=== PATIENT | female | born 1945 | race African-American/Black ===

== ENCOUNTER 2019-10-06 15:30 | Inpatient (IN) | payer MEDICARE ==
[~2019-10-06] VITALS: Ht 172.7 cm; Wt 94.3 kg
[~2019-10-06 15:30] MED LIST: DICL100T83 PO
[2019-10-06] MEDS ORDERED: KETOROLAC 30MG/ML VIAL IV STA (22:01)
[2019-10-06] MEDS ORDERED: ONDANSETRON HCL 4MG/2ML INJ IV STA (22:01)
[2019-10-06] MEDS ORDERED: SODIUM CHLORIDE 0.9% 1,000 ML IV ONE (22:01)
[2019-10-06 22:37] LABS: CLARITY URINE CLEAR (CLEAR); COLOR URINE YELLOW (YELLOW); KETONES URINE 1+ (NEGATIVE); LEUKOCYTE ESTERASE URINE NEGATIVE (NEGATIVE); NITRITE URINE NEGATIVE (NEGATIVE); OCCULT BLOOD URINE NEGATIVE (NEGATIVE); PH URINE 5.5 (4.5-8.0); PROTEIN URINE NEGATIVE (NEGATIVE)
[2019-10-06 22:49] LABS: BASOPHILS % 0.8 % (0.0-2.0); EOSINOPHILS % 0.7 % (0.0-5.0); HEMATOCRIT. 43.7 % (36.0-48.0); HEMOGLOBIN. 14.5 g/dL (12.0-16.0); LYMPHOCYTES % 16.1 % (20.0-50.0); MEAN CORPUSCULAR HEMOGLOBIN 28.8 pg (28.0-32.0); MEAN CORPUSCULAR VOLUME 86.7 fL (81.0-99.0); MEAN PLATELET VOLUME 8.7 fl (7.4-10.4); MONOCYTES % 6.7 % (2.0-8.0); NEUTROPHILS % 75.7 % (40.0-76.0); PLATELET 293 x1000/uL (130-400); RED BLOOD CELL COUNT 5.04 mill/uL (4.2-5.4); RED CELL DISTRIBUTION WIDTH 15.2 % (11.6-14.6)
[2019-10-06 22:53] LABS: CHLORIDE 105 mEq/L (98-107)
[2019-10-06 22:56] LABS: PARTIAL THROMBOPLASTIN TIME 34.2 sec (23.4-31.0); PROTHROMBIN TIME 10.7 sec (9.6-11.0)
[2019-10-06 22:57] LABS: ETHANOL BLOOD < 10 mg/dL
[2019-10-06 23:32] LABS: *AMPHETAMINES SCREEN URINE NEGATIVE (NEGATIVE); *BARBITURATES SCREEN URINE NEGATIVE (NEGATIVE); *BENZODIAZEPINES SCREEN URINE NEGATIVE (NEGATIVE); *COCAINE SCREEN URINE NEGATIVE (NEGATIVE); CANNABINOID URINE SCREEN NEGATIVE (NEGATIVE); METHADONE URINE SCREEN NEGATIVE (NEGATIVE); OPIATES URINE SCREEN NEGATIVE (NEGATIVE); PHENCYCLIDINE URINE SCREEN NEGATIVE (NEGATIVE)
[2019-10-06] MEDS ORDERED: PIPERACILLIN/TAZ 3.375G PREMIX 50 ML IV ONE (23:45)
[2019-10-07] MEDS ORDERED: GUAIFENESIN 200MG/10ML SUGAR FREE UDC PO PRN
[2019-10-07] MEDS ORDERED: NA PHOS,M-B/NA PHOS,DI-BA ENEMA 118ML PR PRN
[2019-10-07] MEDS ORDERED: DOCUSATE SODIUM 100MG CAPSULE PO PRN
[2019-10-07] MEDS ORDERED: CLONIDINE 0.1MG TABLET PO PRN
[2019-10-07] MEDS ORDERED: LORAZEPAM 2MG/ML CPJ IV PRN
[2019-10-07] MEDS ORDERED: IPRATROPIUM/ALBUTEROL 0.5-3(2.5)MG/3ML NEB HHN PRN
[2019-10-07] MEDS ORDERED: DEXT 5%/0.45% NACL 1000ML 1,000 ML IV SCH (02:05)
[2019-10-07 02:09] VITALS: BP 112/74
[2019-10-07 04:00] VITALS: BP 139/77
[2019-10-07] MEDS ORDERED: LISI10TA5 PO (04:39)
[2019-10-07] MEDS ORDERED: BUPIVACAINE HCL 0.5% (5MG/ML) 50ML ONE (07:13)
[2019-10-07] MEDS ORDERED: SKIN ADHESIVE 0.7 GM EA TOP ONE (07:13)
[2019-10-07 07:14] LABS: BASOPHILS % 0.7 % (0.0-2.0); EOSINOPHILS % 1.2 % (0.0-5.0); HEMATOCRIT. 37.3 % (36.0-48.0); HEMOGLOBIN. 12.3 g/dL (12.0-16.0); LYMPHOCYTES % 20.6 % (20.0-50.0); MEAN CORPUSCULAR HEMOGLOBIN 28.5 pg (28.0-32.0); MEAN CORPUSCULAR VOLUME 86.5 fL (81.0-99.0); MEAN PLATELET VOLUME 8.7 fl (7.4-10.4); MONOCYTES % 6.9 % (2.0-8.0); NEUTROPHILS % 70.6 % (40.0-76.0); PLATELET 238 x1000/uL (130-400); RED BLOOD CELL COUNT 4.31 mill/uL (4.2-5.4); RED CELL DISTRIBUTION WIDTH 15.4 % (11.6-14.6)
[2019-10-07] MEDS ORDERED: FENTANYL CITRATE/PF 50MCG/ML 2ML VIAL ONE ×3 (07:38→08:05)
[2019-10-07] MEDS ORDERED: ROCURONIUM BROMIDE 10MG/ML VIAL 5ML IV ONE (07:38)
[2019-10-07] MEDS ORDERED: MIDAZOLAM HCL 2 MG/2 ML VIAL ONE (07:38)
[2019-10-07] MEDS ORDERED: NEOSTIGMINE METHYLSULFATE 1MG/ML 10 ML VIAL ONE (07:38)
[2019-10-07] MEDS ORDERED: PROPOFOL 200MG/20ML VIAL IV ONE (07:38)
[2019-10-07] MEDS ORDERED: CEFAZOLIN SODIUM 1000MG/VIAL ONE (07:39)
[2019-10-07] MEDS ORDERED: EPHEDRINE SULFATE 50MG/ML VIAL ONE (07:39)
[2019-10-07] MEDS ORDERED: METOCLOPRAMIDE HCL 10MG/2ML VIAL ONE (07:39)
[2019-10-07] MEDS ORDERED: GLYCOPYRROLATE 0.2 MG/ML 2ML VIAL ONE (07:39)
[2019-10-07] MEDS ORDERED: LIDOCAINE HCL/PF 1% 10 MG/ML 5ML VIAL ONE (07:39)
[2019-10-07] MEDS ORDERED: PHENYLEPHRINE HCL 10 MG/ML 1ML (IV VIAL) IV ONE (07:39)
[2019-10-07] MEDS ORDERED: SODIUM CHLORIDE 0.9% 10ML VIAL ONE (07:39)
[2019-10-07] MEDS ORDERED: SUCCINYLCHOLINE CHLORIDE 200MG/10ML IV ONE (07:39)
[2019-10-07 07:42] LABS: CHLORIDE 110 mEq/L (98-107)
[2019-10-07] MEDS ORDERED: ONDANSETRON HCL 4MG/2ML INJ IV PRN ×2 (07:45→09:00)
[2019-10-07] MEDS ORDERED: HYDROCODONE/ACETAMINOPHEN 5/325MG TABLET PO PRN (07:45)
[2019-10-07] MEDS ORDERED: PIPERACILLIN/TAZOBACTAM 3.375 G in DEXT 5% WATER 100 ML IV SCH (08:00)
[2019-10-07] MEDS ORDERED: SODIUM CHLORIDE 0.9% 1,000 ML IV ONE (08:48)
[2019-10-07] MEDS: DEXT 5%/0.45% NACL KCL 20MEQ/L 1,000 ML IV SCH ×2 (09:00→13:28)
[2019-10-07] MEDS: ENOXAPARIN 40MG/0.4ML SYR SUBCUT SCH (09:00)
[2019-10-07] MEDS ORDERED: HYDROMORPHONE HCL/PF 2MG/ML CPJ IV PRN (09:00)
[2019-10-07] MEDS ORDERED: MEPERIDINE HCL/PF 25MG/ML CPJ IV PRN ×2 (09:00)
[2019-10-07] MEDS ORDERED: MORPHINE SULFATE 2 MG/ML CPJ (NOT FOR IM USE) IV PRN ×2 (09:00)
[2019-10-07] MEDS: SODIUM CHLORIDE 0.9% INJ 3ML FLUSH IVF SCH ×5 (11:00→21:43)
[2019-10-07 12:00] VITALS: BP 126/71
[2019-10-07] MEDS: MORPHINE SULFATE 2 MG/ML CPJ (NOT FOR IM USE) IV PRN (12:13)
[2019-10-07 16:00] VITALS: BP 148/81
[2019-10-07] MEDS: MORPHINE SULFATE 4 MG/ML CPJ (NOT FOR IM USE) IV PRN ×2 (17:14→20:45)
[2019-10-07] MEDS: PIPERACILLIN/TAZOBACTAM 3.375 G in DEXT 5% WATER 100 ML IV SCH (19:37)
[2019-10-07 20:00] VITALS: BP 130/81
[2019-10-08] VITALS: BP 127/71
[2019-10-08] MEDS: ONDANSETRON HCL 4MG/2ML INJ IV PRN ×2 (01:09→20:23)
[2019-10-08 04:00] VITALS: BP 127/71
[2019-10-08] MEDS: PIPERACILLIN/TAZOBACTAM 3.375 G in DEXT 5% WATER 100 ML IV SCH ×3 (04:39→18:47)
[2019-10-08] MEDS: DEXT 5%/0.45% NACL KCL 20MEQ/L 1,000 ML IV SCH ×2 (04:39→14:54)
[2019-10-08] MEDS: SODIUM CHLORIDE 0.9% INJ 3ML FLUSH IVF SCH ×6 (05:27→22:00)
[2019-10-08] MEDS: ACETAMINOPHEN 325MG TABLET PO PRN ×2 (05:38→23:56)
[2019-10-08 08:00] VITALS: BP 142/83
[2019-10-08] MEDS: ENOXAPARIN 40MG/0.4ML SYR SUBCUT SCH (09:00)
[2019-10-08] MEDS: MORPHINE SULFATE 2 MG/ML CPJ (NOT FOR IM USE) IV PRN ×2 (09:35→20:14)
[2019-10-08 14:00] VITALS: BP 135/85
[2019-10-08 16:00] VITALS: BP 132/64
[2019-10-08 20:00] VITALS: BP 149/86
[2019-10-08] MEDS: MAGNESIUM/ALUMINUM HYDROXIDE/SIMETHICONE 30ML UDC PO PRN (20:13)
[2019-10-09] VITALS: BP 140/87
[2019-10-09] MEDS: DEXT 5%/0.45% NACL KCL 20MEQ/L 1,000 ML IV SCH ×2 (01:35→19:01)
[2019-10-09] MEDS: PIPERACILLIN/TAZOBACTAM 3.375 G in DEXT 5% WATER 100 ML IV SCH ×3 (01:35→19:01)
[2019-10-09] MEDS: ONDANSETRON HCL 4MG/2ML INJ IV PRN (03:11)
[2019-10-09 04:00] VITALS: BP 181/110
[2019-10-09] MEDS: SODIUM CHLORIDE 0.9% INJ 3ML FLUSH IVF SCH ×5 (05:32→22:13)
[2019-10-09 08:00] VITALS: BP 144/90
[2019-10-09] MEDS: ENOXAPARIN 40MG/0.4ML SYR SUBCUT SCH (10:38)
[2019-10-09 11:13] LABS: BASOPHILS % 0.4 % (0.0-2.0); LYMPHOCYTES % 8.4 % (20.0-50.0); MEAN CORPUSCULAR VOLUME 86.2 fL (81.0-99.0); MEAN PLATELET VOLUME 8.5 fl (7.4-10.4); MONOCYTES % 7.5 % (2.0-8.0); NEUTROPHILS % 83.7 % (40.0-76.0); PLATELET 340 x1000/uL (130-400)
[2019-10-09 11:27] LABS: HEMATOCRIT. 42.2 % (36.0-48.0); HEMOGLOBIN. 14.2 g/dL (12.0-16.0)
[2019-10-09 11:41] LABS: CHLORIDE 99 mEq/L (98-107)
[2019-10-09 12:00] VITALS: BP 179/73
[2019-10-09 16:00] VITALS: BP 145/99
[2019-10-09 20:00] VITALS: BP 114/75
[2019-10-09] MEDS: MORPHINE SULFATE 2 MG/ML CPJ (NOT FOR IM USE) IV PRN (20:31)
[2019-10-10] VITALS: BP 113/67
[2019-10-10] MEDS: PIPERACILLIN/TAZOBACTAM 3.375 G in DEXT 5% WATER 100 ML IV SCH ×3 (02:23→16:58)
[2019-10-10 04:00] VITALS: BP 102/66
[2019-10-10] MEDS: SODIUM CHLORIDE 0.9% INJ 3ML FLUSH IVF SCH ×3 (05:16→21:21)
[2019-10-10] MEDS: DEXT 5%/0.45% NACL KCL 20MEQ/L 1,000 ML IV SCH ×2 (06:35→17:16)
[2019-10-10 08:00] VITALS: BP 118/80
[2019-10-10] MEDS: ENOXAPARIN 40MG/0.4ML SYR SUBCUT SCH (08:07)
[2019-10-10] MEDS: MORPHINE SULFATE 4 MG/ML CPJ (NOT FOR IM USE) IV PRN (10:56)
[2019-10-10] MEDS: ONDANSETRON HCL 4MG/2ML INJ IV PRN (10:57)
[2019-10-10 12:00] VITALS: BP 117/71
[2019-10-10] MEDS: DIPHENHYDRAMINE 50MG/ML VIAL IV PRN (15:45)
[2019-10-10 16:00] VITALS: BP 139/72
[2019-10-10 20:00] VITALS: BP 111/79
[2019-10-10] MEDS: MAGNESIUM/ALUMINUM HYDROXIDE/SIMETHICONE 30ML UDC PO PRN (22:53)
[2019-10-11] VITALS: BP 164/99
[2019-10-11] MEDS: PIPERACILLIN/TAZOBACTAM 3.375 G in DEXT 5% WATER 100 ML IV SCH ×3 (02:21→18:27)
[2019-10-11 04:00] VITALS: BP 155/99
[2019-10-11] MEDS: SODIUM CHLORIDE 0.9% INJ 3ML FLUSH IVF SCH ×3 (06:23→22:00)
[2019-10-11 07:35] LABS: BASOPHILS % 0.9 % (0.0-2.0); EOSINOPHILS % 1.8 % (0.0-5.0); HEMATOCRIT. 36.9 % (36.0-48.0); HEMOGLOBIN. 12.1 g/dL (12.0-16.0); LYMPHOCYTES % 16.4 % (20.0-50.0); MEAN CORPUSCULAR HEMOGLOBIN 28.3 pg (28.0-32.0); MEAN CORPUSCULAR VOLUME 86.3 fL (81.0-99.0); MONOCYTES % 7.7 % (2.0-8.0); NEUTROPHILS % 73.2 % (40.0-76.0); PLATELET 379 x1000/uL (130-400); RED BLOOD CELL COUNT 4.27 mill/uL (4.2-5.4); RED CELL DISTRIBUTION WIDTH 14.8 % (11.6-14.6)
[2019-10-11 08:00] LABS: PHOSPHORUS 2.6 mg/dL (2.5-4.9)
[2019-10-11] MEDS: DIPHENHYDRAMINE 50MG/ML VIAL IV PRN (09:52)
[2019-10-11] MEDS: ENOXAPARIN 40MG/0.4ML SYR SUBCUT SCH (09:52)
[2019-10-11 12:00] VITALS: BP 106/85
[2019-10-11] MEDS: DEXT 5%/0.45% NACL KCL 20MEQ/L 1,000 ML IV SCH ×2 (13:00→23:07)
[2019-10-11] MEDS: PANTOPRAZOLE SODIUM 40 MG/VIAL IV SCH (14:33)
[2019-10-11] MEDS ORDERED: POTASSIUM CHLORIDE 20MEQ TABLET SR PO NR (18:30)
[2019-10-11 20:00] VITALS: BP 110/77
[2019-10-12] VITALS: BP 117/78
[2019-10-12] MEDS: PIPERACILLIN/TAZOBACTAM 3.375 G in DEXT 5% WATER 100 ML IV SCH ×3 (02:05→18:30)
[2019-10-12 04:00] VITALS: BP 142/74
[2019-10-12] MEDS: SODIUM CHLORIDE 0.9% INJ 3ML FLUSH IVF SCH ×3 (06:46→22:00)
[2019-10-12 08:00] VITALS: BP 120/74
[2019-10-12] MEDS: PANTOPRAZOLE SODIUM 40 MG/VIAL IV SCH (09:02)
[2019-10-12] MEDS: DEXT 5%/0.45% NACL KCL 20MEQ/L 1,000 ML IV SCH ×2 (09:02→19:00)
[2019-10-12] MEDS: ENOXAPARIN 40MG/0.4ML SYR SUBCUT SCH (09:02)
[2019-10-12] MEDS: ACETAMINOPHEN 325MG TABLET PO PRN ×2 (09:05→16:39)
[2019-10-12 12:00] VITALS: BP 108/75
[2019-10-12 16:00] VITALS: BP 116/69
[2019-10-12 20:00] VITALS: BP 118/69
[2019-10-12] MEDS: LEVOFLOXACIN 500MG TABLET PO SCH (20:37)
[2019-10-12] MEDS ORDERED: TEMAZEPAM 15MG CAPSULE PO PRN (21:00)
[2019-10-12] MEDS: METRONIDAZOLE 500MG TABLET PO SCH (22:15)
[2019-10-13] VITALS: BP 104/60
[2019-10-13] MEDS: PIPERACILLIN/TAZOBACTAM 3.375 G in DEXT 5% WATER 100 ML IV SCH ×2 (02:30→09:13)
[2019-10-13 04:00] VITALS: BP 105/77
[2019-10-13] MEDS: DEXT 5%/0.45% NACL KCL 20MEQ/L 1,000 ML IV SCH ×2 (05:00→14:27)
[2019-10-13] MEDS: SODIUM CHLORIDE 0.9% INJ 3ML FLUSH IVF SCH ×2 (05:20→13:34)
[2019-10-13] MEDS: METRONIDAZOLE 500MG TABLET PO SCH ×2 (05:36→13:21)
[2019-10-13 08:00] VITALS: BP 132/79
[2019-10-13] MEDS: ENOXAPARIN 40MG/0.4ML SYR SUBCUT SCH (08:27)
[2019-10-13] MEDS: PANTOPRAZOLE SODIUM 40 MG/VIAL IV SCH (08:28)
[2019-10-13 09:42] VITALS: BP 132/79
[2019-10-13 12:00] VITALS: BP 130/89
[2019-10-13 16:00] VITALS: BP 109/75
[2019-10-13] MEDS: LEVOFLOXACIN 500MG TABLET PO SCH (16:52)
== END 2019-10-13 19:15 | disposition home or self-care (01) | DRG 339 ==
LOC: ER 15:30 → 6EST 23:46 → ENRESERV 10-07 00:44
PROVIDERS: ADMIT Internal Medicine Pulmonary Disease; ATTEND Internal Medicine Pulmonary Disease
PROC: 0DTJ0ZZ Resection of Appendix, Open Approach (ICD-10-PCS; principal; 2019-10-07)
DX: K35.32 Acute appendicitis with perforation, localized peritonitis, and gangrene, without abscess (principal); K56.7 Ileus, unspecified; J44.9 Chronic obstructive pulmonary disease, unspecified; I10 Essential (primary) hypertension; K21.9 Gastro-esophageal reflux disease without esophagitis; E78.00 Pure hypercholesterolemia, unspecified; Z79.899 Other long term (current) drug therapy; Z87.891 Personal history of nicotine dependence; Z98.51 Tubal ligation status; Z88.6 Allergy status to analgesic agent; Z88.1 Allergy status to other antibiotic agents
CPT/HCPCS: 36415; 71045; 74018; 74176; 80048; 80305; 80320; 81003; 83735; 83880; 84100; 84484; 88304; 93005; 94640; 97116; 97162; C1893; C9113; J0330; J0690; J1200; J1650; J1885; J2175; J2250; J2270; J2370; J2405; J2543; J2704; J2710; J2765; J3010; J3490; J7030; J7040; J7060; J7620; G0480

== ENCOUNTER 2020-05-17 13:14 | Emergency (ER) | payer MEDICARE, OTHER ==
[~2020-05-17] VITALS: Ht 167.6 cm; Wt 80.0 kg
[~2020-05-17 13:14] MED LIST changes: +LISI10TA5 PO
[2020-05-17 14:12] LABS: BASOPHILS % 0.7 % (0.0-2.0); HEMATOCRIT. 41.2 % (36.0-48.0); HEMOGLOBIN. 14.1 g/dL (12.0-16.0); LYMPHOCYTES % 14.8 % (20.0-50.0); MEAN CORPUSCULAR HEMOGLOBIN 29.6 pg (28.0-32.0); MEAN CORPUSCULAR VOLUME 86.5 fL (81.0-99.0); MEAN PLATELET VOLUME 8.4 fl (7.4-10.4); MONOCYTES % 9.8 % (2.0-8.0); NEUTROPHILS % 74.7 % (40.0-76.0); PLATELET 271 x1000/uL (130-400); RED BLOOD CELL COUNT 4.76 mill/uL (4.2-5.4); RED CELL DISTRIBUTION WIDTH 15.8 % (11.6-14.6)
[2020-05-17 14:19] LABS: CHLORIDE 106 mEq/L (98-107)
[2020-05-17] MEDS ORDERED: IPRATROPIUM/ALBUTEROL 0.5-3(2.5)MG/3ML NEB HHN ONE (14:30)
[2020-05-17] MEDS ORDERED: ALBUTEROL (0.083%) 2.5MG/3ML NEB ONE (16:01)
[2020-05-17 18:20] VITALS: BP 109/66
== END 2020-05-17 18:20 | disposition left against medical advice (07) ==
LOC: ER 13:36
DX: U07.1 COVID-19 (principal); J18.9 Pneumonia, unspecified organism; N17.9 Acute kidney failure, unspecified; I10 Essential (primary) hypertension; E78.00 Pure hypercholesterolemia, unspecified; Z98.51 Tubal ligation status; Z88.3 Allergy status to other anti-infective agents; Z88.5 Allergy status to narcotic agent
CPT/HCPCS: 36415; 71045; 80053; 83880; 84484; 85025; 93005; 94640; 99285; C9803; U0003

== ENCOUNTER 2020-07-25 14:22 | Emergency (ER) | payer OTHER ==
[~2020-07-25] VITALS: Ht 162.6 cm; Wt 77.0 kg
[2020-07-25] MEDS ORDERED: SODIUM CHLORIDE 0.9% 500 ML IV ONE (14:48)
[2020-07-25] MEDS ORDERED: TRAMADOL 50MG TABLET PO ONE (15:45)
[2020-07-25 16:10] LABS: BASOPHILS % 1.3 % (0.0-2.0); EOSINOPHILS % 2.2 % (0.0-5.0); HEMATOCRIT. 41.4 % (36.0-48.0); HEMOGLOBIN. 13.6 g/dL (12.0-16.0); LYMPHOCYTES % 33.1 % (20.0-50.0); MEAN CORPUSCULAR HEMOGLOBIN 28.3 pg (28.0-32.0); MEAN CORPUSCULAR VOLUME 85.9 fL (81.0-99.0); MEAN PLATELET VOLUME 8.2 fl (7.4-10.4); MONOCYTES % 6.9 % (2.0-8.0); NEUTROPHILS % 56.5 % (40.0-76.0); PLATELET 379 x1000/uL (130-400); RED BLOOD CELL COUNT 4.81 mill/uL (4.2-5.4); RED CELL DISTRIBUTION WIDTH 16.4 % (11.6-14.6)
[2020-07-25 16:14] LABS: CHLORIDE 108 mEq/L (98-107)
[2020-07-25 16:19] LABS: PROTHROMBIN TIME 10.5 sec (9.6-11.0)
[2020-07-25] MEDS ORDERED: IOHEXOL-300 100 ML BOTTLE ONE (16:51)
[2020-07-25 17:33] LABS: CLARITY URINE CLEAR (CLEAR); COLOR URINE YELLOW (YELLOW); KETONES URINE NEGATIVE (NEGATIVE); LEUKOCYTE ESTERASE URINE NEGATIVE (NEGATIVE); NITRITE URINE NEGATIVE (NEGATIVE); OCCULT BLOOD URINE NEGATIVE (NEGATIVE); PH URINE 5.5 (4.5-8.0); PROTEIN URINE NEGATIVE (NEGATIVE); SPECIFIC GRAVITY URINE 1.016 (1.005-1.030); UROBILINOGEN URINE 0.2 E.U./dL (0.2-1.0)
[2020-07-25 18:57] VITALS: BP 130/84
== END 2020-07-25 20:11 | disposition home or self-care (01) ==
LOC: ER 14:41
DX: S29.9XXA Unspecified injury of thorax, initial encounter (principal); S21.90XA Unspecified open wound of unspecified part of thorax, initial encounter; E78.00 Pure hypercholesterolemia, unspecified; I10 Essential (primary) hypertension; Z88.6 Allergy status to analgesic agent; Z88.1 Allergy status to other antibiotic agents; Z98.51 Tubal ligation status; V49.9XXA Car occupant (driver) (passenger) injured in unspecified traffic accident, initial encounter; Y93.89 Activity, other specified; Y92.89 Other specified places as the place of occurrence of the external cause; Y99.8 Other external cause status
CPT/HCPCS: 36415; 71045; 71260; 72125; 73080; 80053; 81003; 83690; 84484; 85025; 85610; 93005; 96360; 99285; J7040; Q9967